=== PATIENT | female | born 1985 | race Native Hawaiian/Other Pacific Islander ===

== ENCOUNTER 2017-12-12 04:04 | Inpatient (IN) | payer OTHER ==
[2017-12-12] MEDS: Lactated Ringer's 1,000 ML IV SCH ×2 (05:40→06:45)
[2017-12-12] MEDS ORDERED: Lactated Ringer's 1,000 ML IV SCH (05:45)
[2017-12-12] MEDS ORDERED: Oxytocin 30 units/LR 500ML 30 U/500 ML BAG IV SCH ×2 (05:45→15:54)
[2017-12-12 06:09] LABS: BASO % 0.3 % (0.0-2.0); EOS % 0.2 % (0.0-4.0); HEMOGLOBIN 12.1 g/dL (12.0-16.0); LYMPH # 1.4 K/uL (1.0-4.3); LYMPH % 12.3 % (20.0-40.0); MEAN CELL VOLUME 89.9 fl (81.0-99.0); MEAN CORPUSCULAR HEMOGLOBIN 28.9 pg (27.0-31.0); MEAN CORPUSCULAR HGB CONC 32.2 g/dL (33.0-37.0); MEAN PLATELET VOLUME 9.1 fl (7.2-11.7); MONO # 0.8 K/uL (0.0-0.8); NEUT # 9.3 K/uL (1.8-7.0); NEUT % 80.2 % (50.0-75.0); RBC 4.18 Mil/uL (3.80-5.20); WHITE BLOOD COUNT 11.6 K/uL (4.8-10.8)
[2017-12-12] MEDS ORDERED: Fentanyl/Bupivacaine HCl 125 ML EPI ONE (06:38)
--- NOTE | 2017-12-12 09:48 | OBPN ---
Datetime: 12/12/2017 07:30 IP Progress Impression: Normal progression of labor; Reassuring heart rate IP Informed Consent Obtain: Vaginal After ; Risks, Benefits and Alternatives Discussed IP Progress Plan: Continue present management Pool Provider: Negative Membranes, Provider: Intact Contraction Comments Provider: Occ CTX FHR - Baseline A Provider: 150 Presentation-Admit: Vertex IP Progress Note Comment: She was admitted in labor. She was counselled about by PMD. She und erstands risks/complicatoins. She received epidural and feels better. A; Active phase of labor Previous C/S trial PLAN: discussion with patient modes of delivery. She wants trial. Monitor progress NICHD Accel Fetus A IP Provider: [id number] FHR Category Provider Fetus A: Category I NICHD Variability Prov Fetus A: Moderate 6-25bpm Dilatation, Provider: 8-9 Effacement, Provider: 90 Station, Provider: -1 NICHD Decel Fetus A IP Provider: None Datetime: 12/12/2017 06:08 Vital Signs Provider: Reviewed
--- NOTE | 2017-12-12 09:51 | OBPN ---
Datetime: 12/12/2017 09:40 IP Progress Impression: Reassuring heart rate IP Informed Consent Obtain: Vaginal After ; Risks, Benefits and Alternatives Discussed IP Procedures: Artificial ROM IP Progress Plan: Continue present management; Augmentation Membranes, Provider: Ruptured Amniotic Fluid Color, Provider: Clear Contraction Comments Provider: occ FHR - Baseline A Provider: 140 IP Progress Note Comment: Active phase o f labor iregular ctx pattern PLAN discussion with patient about augmentatoin...agreed to AROM - clear fluids note - montior pro roderick NICHD Accel Fetus A IP Provider: [id number] FHR Category Provider Fetus A: Category I NICHD Variability Prov Fetus A: Moderate 6-25bpm Dilatation, Provider: 9 Effacement, Provider: 100 Station, Provider: -1
[2017-12-12] MEDS ORDERED: Oxycodone/Acetaminophen 5/325 mg Tab PO PRN (15:54)
--- NOTE | 2017-12-12 18:35 | OBDS ---
DELIVERY PERSONNEL Delivery Doctor: Scar Andrews DO Satellite Dish Technician: Rhonda Carlisle RN Anesthesiologist: Lesli Albright MD MATERNAL INFORMATION Delivery Anesthesia: Local; Epidural Medications in Delivery: none Estimated Blood Loss (ml): 200 Placenta Cultured: No Maternal Complications: None RN Comments: patient delivered girl via , status post shoulder dystocia. infant was deliv ered and taken to warmer and examined by Dr Snell. tactile stimulation and PPV done. apgars were 7 a nd 9. infant was placed on maternal chest for skin to skin. patient was repaired for first degree lac. ice pack applied. pitocin 30units infusing at 999ml/hr. patient and remained in stable condition. Provider Comments: Perineum was swollen. I was called when she was . Over intact perineum, of live infant from cephalic presentation. Once head was out, it was bulb suctioned at perineum . With her pushing, she was unabel to deliver head. Mansoor and suprapubic pressure applied when sh e pushed with CTX. With next CTX, posteior shoulder was delivered. Peds was called. 7,9 at 1 and 5 min. Good ROM noted by Dr Snell and nurses. Placenta delivered intact spontaneously. EBL 200cc LABOR SUMMARY EDC: 12/17/2017 00:00 No. Babies in Womb: 1 Attempted: Yes Labor Anesthesia: Epidural LABOR INFORMATION Reason for Induction: Not Applicable Onset of Labor: 12/12/2017 01:00 Complete Dilatation: 12/12/2017 12:50 Oxytocin: N/A Group B Beta Strep: Negative Steroids Given: None Reason Steroids Not Administered: Not Applicable MEMBRANES Membranes Rupture Method: Artificial Rupture of Membranes: 12/12/2017 09:42 Length of Rupture (hrs): 5.48 Amniotic Fluid Color: Clear Amniotic Fluid Amount: Small Amniotic Fluid Odor: Normal STAGES OF LABOR Stage 1 hrs: 11 Stage 1 min: 50 Stage 2 hrs: 2 Stage 2 min: 21 Stage 3 hrs: 0 Stage 3 min: 10 Total Time in Labor hrs: 14 Total Time in Labor min: 21 VAGINAL DELIVERY Episiotomy: None Laceration Extension: First Degree Laceration Type: Perineal Laceration Repair: Yes Laceration Repair Note: 1st degree perineal laceration repaired with 2.0 Vicryl Rapide suture. 1% L idocaine infiltrated (4cc). Initial Vag Sponge Count: 5 Final Vag Sponge Count: 5 Initial Vag Sharps Count: 3 Final Vag Sharps Count: 3 Sponge Count Correct: Yes BABY A INFORMATION Infant Delivery Date/Time: 12/12/2017 15:11 Method of Delivery: Vaginal Born in Route : No : Successful Forceps: N/A Vacuum Extraction: N/A Shoulder Dystocia : Yes SHOULDER DYSTOCIA BABY A Delivery of Head: 12/12/2017 15:09 Delivery Date/Time: 12/12/2017 15:11 Time Head to Delivery : 2.0 1st Intervention to Resolve: Gentle Attempt at Traction, Assisted by Maternal Expulsive Efforts 2nd Intervention to Resolve: McRobert's Maneuver 3rd Intervention to Resolve: Suprapubic Pressure 4th Intervention to Resolve: Posterior Arm Release Verify NO Fundal Pressure: No Fundal Pressure Applied Arm Under Symphisis at Del: Right PRESENTATION/POSITION BABY A Presentation: Cephalic PLACENTA INFORMATION BABY A Placenta Delivery Time : 12/12/2017 15:21 Placenta Method of Delivery: Spontaneous Placenta Status: Delivered SCORES BABY A Heart Rate 1 min: >100 bpm Resp Effort 1 min: Slow, Irregular Reflex Irritability 1 min: Cough or Sneeze or Pulls Away Muscle Tone 1 min: Some Flexion of Extremities Color 1 min: Body Bath, Extremities Blue Resuscitation Effort 1 min: Tactile Stimulation; PPV/NCPAP SCORE 1 MIN: 7 Heart Rate 5 min: >100 bpm Resp Effort 5 min: Good Cry Reflex Irritability 5 min: Cough or Sneeze or Pulls Away Muscle Tone 5 min: Active Motion Color 5 min: Completely Bath Resuscitation Effort 5 min: N/A SCORE 5 MIN: 10 INFANT INFORMATION BABY A Gestational Age at Delivery: 39.0 Gestational Status: Term Infant Outcome : Liveborn Condition : Stable Infant Sex: Female WEIGHT/LENGTH BABY A Infant Birthweight (gms): 3185 Weight (lb): 7 Weight (oz): 0 CORD INFORMATION BABY A No. Cord Vessels: 3 Nuchal Cord : N/A Cord Blood Taken: Yes Suction: Mouth
[2017-12-13 06:52] LABS: HEMOGLOBIN 9.9 g/dL (12.0-16.0); MEAN CELL VOLUME 90.6 fl (81.0-99.0); MEAN CORPUSCULAR HEMOGLOBIN 29.2 pg (27.0-31.0); MEAN CORPUSCULAR HGB CONC 32.2 g/dL (33.0-37.0); RBC 3.39 Mil/uL (3.80-5.20); WHITE BLOOD COUNT 15.6 K/uL (4.8-10.8)
--- NOTE | 2017-12-13 08:42 | OBPPN ---
Datetime: 12/13/2017 08:37 PP Pain Prov: Within normal limits PP Nausea Prov: Denies PP Flatus Prov: Yes PP BM Prov: No PP Breasts Prov: Normal PP Heart Prov: Normal PP Lungs Prov: Normal PP Abdomen/Uterus Prov: Normal PP Lochia Prov: Normal PP Vulva/Perineum Prov: Abnormal PP CVA Tenderness Prov: Normal PP Extremities Prov: Normal PP Progress Prov: Normal PP Comments Phys Exam Prov: Perinum - swollen but less than yesterday PP Impression Prov: Normal progression PP Plan Prov: Continue present management PP Plan Other Prov: Ice packs PP Progress Note Prov: She feels fine this AM; ambulating without diff H/H 06/24 A: S/P day 1 anemia - asymptomatic PLAN: anticipate discharge in AM Vital Signs Provider PP: Reviewed; Within Normal Limits
--- NOTE | 2017-12-13 12:34 | OBPPN ---
Datetime: 12/13/2017 08:37 PP Progress Note Prov: She feels fine this AM; ambulating without diff H/H 06/24 A: S/P day 1 anemia - asymptomatic PLAN: anticipate discharge in AM The patient was seen with the resident I agree with the note
--- NOTE | 2017-12-14 09:04 | OBDCSUM ---
Datetime: 12/14/2017 09:01 Discharged to, Provider: Home Follow up at, Provider: Percy Disch Instr Activity: Normal activity; May Shower Disch Instr Diet: Regular Discharge Instructions, Provider: Routine instructions given Discharge Diagnosis, Provider: Term Delivered Discharge Time: 12/14/2017 09:01 Follow up in weeks, Provider: 6 weeks Contraception discussed, Prov: No Disch Activity Restrictions: No exercising; No lifting; No sexual activity; Nothing in vagina - Inte rcourse, tampons, douche
--- NOTE | 2017-12-14 09:04 | OBPPN ---
Datetime: 12/14/2017 09:00 PP Pain Prov: Within normal limits PP Abdomen/Uterus Prov: Normal PP Lochia Prov: Normal PP Extremities Prov: Normal PP Impression Prov: Normal progression PP Plan Prov: Discharge PP Progress Note Prov: PPD 2 s/p , doing well Rx's motrin and ferrous sulfate given Discharge home today Vital Signs Provider PP: Reviewed; Within Normal Limits
[2017-12-14 18:24] VITALS: BP 107/74; PULSE 74; RESP 20; TEMP 97.8; O2SAT 99
== END 2017-12-14 13:55 | disposition home or self-care (01) | DRG 775 ==
LOC: H.EROB2 04:04 → H.L&D 05:38 → H.OB/GYN 17:34
PROVIDERS: ADMIT Obstetrics & Gynecology; ATTEND Obstetrics & Gynecology
PROC: 10E0XZZ Delivery of Products of Conception, External Approach (ICD-10-PCS; principal; 2017-12-12)
PROC: 0HQ9XZZ Repair Perineum Skin, External Approach (ICD-10-PCS; 2017-12-12)
PROC: 10907ZC Drainage of Amniotic Fluid, Therapeutic from Products of Conception, Via Natural or Artificial Opening (ICD-10-PCS; 2017-12-12)
DX: O34.211 Maternal care for low transverse scar from previous cesarean delivery (principal); O66.0 Obstructed labor due to shoulder dystocia; O90.81 Anemia of the puerperium; O70.0 First degree perineal laceration during delivery; Z37.0 Single live birth; Z3A.39 39 weeks gestation of pregnancy; Z91.013 Allergy to seafood